=== PATIENT | male | born 1955 | race Caucasian/White ===

== ENCOUNTER 2019-06-19 07:04 | Day surgery (SDC) | payer OTHER, MEDICARE ==
[~2019-06-19] VITALS: Ht 177.8 cm; Wt 83.5 kg
[~2019-06-19 07:04] MED LIST: ASPI81CH; Azor 5-40 MG T1 EACH; Dyazide 37.5-21 EACH; GABA300; HYDACE5 PO; PROM25 PO; TRAZ100; ZOLP10; ZYRTEC10 M1
--- NOTE | 2019-06-19 08:27 | NUR ---
06/19/19 0827 Lori Christianson VERBALIZES RIGHT WRIST A LITTLE SORE FROM IV START. SITE WITHOUT REDNESS & PATENT.
== END 2019-06-19 09:18 | disposition home or self-care (01) ==
LOC: ORSCSDS 07:04
PROVIDERS: Internal Medicine Gastroenterology
PROC: 0DBN8ZX Excision of Sigmoid Colon, Via Natural or Artificial Opening Endoscopic, Diagnostic (ICD-10-PCS; principal; 2019-06-19 08:30)
DX: Z12.11 Encounter for screening for malignant neoplasm of colon (principal); D12.5 Benign neoplasm of sigmoid colon; K57.30 Diverticulosis of large intestine without perforation or abscess without bleeding; Z86.010 Personal history of colon polyps; K64.8 Other hemorrhoids; Z80.0 Family history of malignant neoplasm of digestive organs; I10 Essential (primary) hypertension; J45.909 Unspecified asthma, uncomplicated; Z79.82 Long term (current) use of aspirin; Z79.899 Other long term (current) drug therapy
CPT/HCPCS: 88305; J0330; J0461; J2405; J2704; J7120